=== PATIENT | female | born 1950 | race Caucasian/White ===

== ENCOUNTER 2025-01-30 08:09 | Day surgery (SDC) | payer MEDICARE, BC ==
[2025-01-30] VITALS (13 sets, daily range): BP systolic 95–119; BP diastolic 43–73; PULSE 67–81; RESP 12–20; TEMP 98; O2SAT 96–98
[~2025-01-30] VITALS: Ht 157.5 cm; Wt 58.8 kg
--- NOTE | 2025-01-30 08:57 | ELECTROCARDIOGRAPH REPORT ---
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 FATOUMATA Albrecht Measurements Intervals [place] Rate: 67 P: 63 OR: 157 QRS: 66 QRSD: 93 T: -13 QT: 391 QTc: 413 Interpretive Statements Sinus rhythm Borderline T abnormalities, inferior leads Electronically Signed On 01-30-2025 13:29:[address] FATOUMATA Albrecht Please click the below link to view image of tracing.
[2025-01-30] MEDS ORDERED: vitamin d (08:58)
[2025-01-30] MEDS ORDERED: ZOLE5INF7 IV (08:58)
[2025-01-30] MEDS ORDERED: INUL1TAB4 (08:58)
[2025-01-30] MEDS ORDERED: VITA1CAP PO (08:58)
[2025-01-30] MEDS ORDERED: ASCO100031 PO (08:58)
[2025-01-30] MEDS ORDERED: [UNRECOGNIZED DRUG - OTHER] (08:58)
[2025-01-30] MEDS ORDERED: ASPI-1265 PO (08:58)
[2025-01-30 09:03] LABS: BASOPHILS % (AUTO) 0.4 % (0-1); EOSINOPHILS # (AUTO) 0.1 X10'3 (0-0.9); EOSINOPHILS % (AUTO) 1.3 % (0-6); HEMATOCRIT 41.4 % (35.0-45.0); HEMOGLOBIN 13.9 g/dl (12.0-16.0); LYMPHOCYTES # (AUTO) 1.9 X10'3 (1.1-4.8); LYMPHOCYTES % (AUTO) 38.1 % (21-51); MEAN CORPUSCULAR HEMOGLOBIN 31.5 PG (27.0-31.0); MEAN CORPUSCULAR HGB CONC 33.7 g/dL (33.0-36.5); MEAN CORPUSCULAR VOLUME 93.6 FL (78-98); MEAN PLATELET VOLUME 7.4 FL (7.4-10.4); MONOCYTES # (AUTO) 0.5 X10'3 (0-0.9); MONOCYTES % (AUTO) 9.6 % (2-12); NEUTROPHILS # (AUTO) 2.6 X10'3 (1.8-7.7); NEUTROPHILS % (AUTO) 50.6 % (42-75); PLATELET COUNT 241 X10'3 (140-440); RED BLOOD COUNT 4.42 X10'6 (4.20-5.60); RED CELL DISTRIBUTION WIDTH 12.7 % (11.5-14.5); WHITE BLOOD COUNT 5.1 X10'3 (4.5-11.0)
[2025-01-30 09:15] LABS: ALBUMIN 3.8 G/DL (3.4-5.0); ANION GAP 9 (8-16); BLOOD UREA NITROGEN 11 MG/DL (7-18); BUN/CREATININE RATIO 15.9 (10.0-20.0); CALCIUM 8.8 MG/DL (8.5-10.1); CHLORIDE 106 MMOL/L (99-107); CREATININE 0.69 MG/DL (0.40-0.90); GLUCOSE 104 MG/DL (70-104); POTASSIUM 4.1 MMOL/L (3.5-5.1); SODIUM 140 MMOL/L (135-145); TOTAL CARBON DIOXIDE 25.3 MMOL/L (24-32); eCRCL 58 ML/MIN; eGFR 84 ML/MIN
[2025-01-30 09:18] LABS: PROTHROMBIN TIME 10.5 SECONDS (9.0-12.0)
[2025-01-30] MEDS: normal saline 1,000 ML IV SCH (09:18)
[2025-01-30] MEDS: sodium bicarbonate 1meq/ml syr 150 ML in dextrose 5%-water 1,000 ML IV ONE (09:19)
[2025-01-30] MEDS: diphenhydrAMINE 25mg capsule PO PRN (09:20)
[2025-01-30] MEDS: LIDOcaine 1% (10mg/ml) 2ml vial ONE (09:20)
[2025-01-30] MEDS ORDERED: midazolam 1 mg/ML 2ml injection ONE ×2 (10:16→11:28)
[2025-01-30] MEDS ORDERED: fentaNYL/PF 50MCG/1 ML 2ML syringe ONE (10:16)
[2025-01-30] MEDS ORDERED: LIDOcaine 1% 30ml preserv. free vial ONE (10:16)
[2025-01-30] MEDS ORDERED: iohexol 350 MG/ML 50ML vial IV ONE (10:17)
[2025-01-30] MEDS ORDERED: iohexol 350MG/ML 100ml bottle IV ONE ×3 (10:17→11:51)
[2025-01-30] MEDS ORDERED: heparin 1,000unit/ml 10ml vial 10 ML ONE (10:17)
[2025-01-30] MEDS ORDERED: protamine sulfate 10mg/ml inj. ONE (12:05)
[2025-01-30] MEDS ORDERED: clopidogrel 300mg tablet ONE (12:05)
[2025-01-30] MEDS ORDERED: proCHLORperazine 10 MG/2 ml inj IV PRN (12:50)
[2025-01-30] MEDS ORDERED: ondansetron/PF 4mg/2ml inj IV PRN (12:50)
--- NOTE | 2025-01-30 13:30 | CARDIOLOGY REPORT ---
DATE OF SERVICE: 01/30/2025 DICTATING PHYSICIAN: KAYLAN SANDERS DO CARDIAC CATHETERIZATION REPORT CLINICAL HISTORY: This 74-year-old physically-fit woman has claudication involving the left lower leg. Recent ultrasonography has demonstrated a high-grade stenosis in the mid left SFA. PROCEDURES PERFORMED: * Right common femoral arterial access. * Abdominal aortography with bilateral runoff. * Placement of a Destination catheter in the left/contralateral common femoral artery. * Balloon angioplasty (left mid superficial femoral artery). * Placement of a stent (left superficial femoral artery). * Drug-eluting balloon angioplasty (left mid SFA). * Percutaneous arteriotomy closure (Perclose). * 1 hour and 15 minutes conscious sedation supervision. DESCRIPTION OF PROCEDURE: The patient was sedated with fentanyl and Versed. She was then prepared and draped in the usual manner. The right inguinal area was infiltrated with 1% lidocaine using a micropuncture set and a Seldinger technique. A 7-Japanese sheath was placed in the common femoral artery. A pigtail catheter was placed just above the iliac bifurcation and aortography with bilateral runoff was achieved using an injection of 40 mL at 20 mL/s. A 6-Japanese SONYA catheter was placed at the iliac bifurcation with a tip directed into the contralateral common femoral artery. Using a Wise Advantage wire passed through the SONYA catheter, a 45 cm Destination sheath was positioned in the left/contralateral common femoral artery. Additional arteriography of the femorals, popliteal and infrapopliteal arterial vessels was then performed. Using a 6 x 40 balloon, a high-grade stenosis and a moderate stenosis (below and in in close proximity) were dilated. Following this, a 6 x 60 Hernandez Absolute Pro self-expanding stent was placed across the residual narrowing. The stented area was then treated with a 3-minute inflation of a OMGPOPtronic drug-eluting balloon, which was also 6 x 60 cm. Final arteriography of the treated site was performed. The Destination sheath was removed and the right femoral access site was Perclosed. RESULTS: Right side: * The entire iliac system was entirely free of obstructive disease. * The superficial femoral artery and the proximal part of the profunda femoris artery were found to be free of obstructive disease. * The popliteal artery was patent and unobstructed. * The anterior tibial was filled approximately skilled nursing down the length of the tibia. There was filling approximately skilled nursing down for the posterior tibial and peroneal arteries as well. Filling of the foot was not observed, but there was no obvious obstruction of flow down to the ankle. Left side: * The proximal profunda femoris artery was patent and unobstructed. * The common femoral was patent and unobstructed. * Approximately skilled nursing along the length of the SFA, there was a 90-95% stenosis followed by a 60% stenosis. * The popliteal artery was patent and unobstructed. * There was 3-vessel runoff down to the ankle and 2-vessel runoff into the left foot. INTERVENTION: Following balloon angioplasty, stenting, and drug-eluting balloon angioplasty, there was no residual stenosis in the left SFA and brisk runoff distally. RECOMMENDATIONS: Ongoing medical therapy. KAYLAN SANDERS DO TID: [id number] RECEIPT: [id number] PAULETTE YU
[2025-01-30] MEDS ORDERED: ATOR40TA72 PO (16:13)
[2025-01-30] MEDS ORDERED: CLOP75TA33 PO (16:13)
== END 2025-01-30 16:55 | disposition home or self-care (01) ==
LOC: SSTAY O 08:09
PROVIDERS: ATTEND Internal Medicine Cardiovascular Disease
DX: I70.212 Atherosclerosis of native arteries of extremities with intermittent claudication, left leg (principal); I49.5 Sick sinus syndrome; E78.5 Hyperlipidemia, unspecified; Z95.0 Presence of cardiac pacemaker; Z79.899 Other long term (current) drug therapy
CPT/HCPCS: 36415; 37226; 75630; 80048; 83735; 85025; 85610; 93005; 99152; 99153; A6258; C1714; C1725; C1760; C1769; C1876; C1894; C2623; J1644; J2003; J2250; J2720; J3010; J3490; J7030; J7070; Q0163; Q9967; Z7610; 37227; 75710